=== PATIENT | female | born 1995 | race Caucasian/White ===

== ENCOUNTER 2018-07-18 18:01 | Inpatient (IN) | payer BC ==
--- NOTE | 2018-07-18 18:22 | PDGENHP ---
History and Physical - Chief Complaint bladder pain - History of Present Illness Lola underwent a cystoscopy with hydrodistention today at the [facility]. The operation was without complication. Post operatively the patient was treated with pain meds in the PACU but could not get comfortable enough for discharge. Findings at the time of surgery showed a mild case of interstitial cystitis. She needs to be admitted for pain control. Past Medical history: Anxiety, Interstitial cystitis Exam somnolent due to pain meds, mod discomfort abd- soft non distended, suprapubic tenderness Imp Interstitial cystitis- post op pain from hydrodistention Plan Admit to the hospital for pain control Follow o2 saturation History Information - Allergies/Home Medication List Allergies/Adverse Reactions: amoxicillin Allergy (Verified 07/18/18 18:04) Hives Sulfa (Sulfonamide Antibiotics) Allergy (Verified 07/18/18 18:04) Hives I have personally reviewed and updated: family history, medical history, surgical history Review of Systems Review of Systems: Physical Exam Physical Exam:
[2018-07-19] MEDS: KETOROLAC 30 MG/1 ML SDV IVP PRN ×4 (00:34→23:39)
[2018-07-19] MEDS: D5W 1/2 NS W/ 20 KCl/L 1,000 ML IV SCH ×3 (00:43→20:12)
[2018-07-19] MEDS: OXYCODONE/APAP 5/325 TAB PO PRN ×4 (04:41→23:39)
[2018-07-19] MEDS: CITALOPRAM 20 MG TAB PO SCH (08:50)
--- NOTE | 2018-07-19 10:28 | ASMTCMCOM ---
CM Note CM Note Notes: Met with Pt and Father briefly as Pt was in pain & tearful. RN caring for Pt aware. Pt is a 23yr s/p cystoscope admitted with Abd Pain. Pain Management is ongoing. CM to monitor needs for discharge when Pt is able to answer questions. Plan: TBD Date Signed: 07/19/2018 10:27 AM Electronically Signed By:Camryn Mir
[2018-07-19] MEDS ORDERED: LIDOCAINE 2% JELLY 20 ML (UROJECT) UR ONE ×2 (11:55→12:30)
--- NOTE | 2018-07-19 12:03 | SOAPPROG ---
SOAP Progress Note Assessment/Plan: Assessment: Bladder pain syndrome Still having pain. Voiding. Plan: Ativan, oxybutynin, B&O, lidocaine jelly per urethra, zyrtec, flomax. Will reassess in 2 hrs. 07/19/18 12:00 Subjective: Still having bladder pain. Not ambulated but briefly to bathroom. No blood in urine. Objective: Vital Signs Temp Pulse Resp BP Pulse Ox 36.7 C 84 16 109/58 L 94 07/19/18 11:25 07/19/18 11:25 07/19/18 11:25 07/19/18 11:25 07/19/18 11:25 07/18/18 07/19/18 07/20/18 05:59 05:59 05:59 Intake Total 1080 Balance 1080 Physical Exam - Physical Exam Respiratory: other (normal rate of breathing) Cardiac/Chest: regular rate, rhythm Abdomen: soft, other (tender to light palpation) Skin: normal color, warm/dry Extremities: non-tender Neuro/Psych: oriented x 3 ICD10 Worksheet Patient Problems: Problems Problem Status Onset Chronic bladder pain Acute - ICD10 Problem Qualifiers (1) Chronic bladder pain
[2018-07-19] MEDS: CETIRIZINE 10 MG TAB PO SCH (12:24)
[2018-07-19] MEDS: PHENAZOPYRIDINE HCL 200 MG TAB PO SCH ×2 (12:24→20:11)
[2018-07-19] MEDS: OXYBUTYNIN CHLORIDE 5 MG TAB PO SCH ×3 (12:24→21:52)
[2018-07-19] MEDS: TAMSULOSIN HCL 0.4 MG CAP PO SCH (12:24)
[2018-07-19] MEDS: LORazepam 1 MG TAB PO PRN ×3 (12:25→23:38)
[2018-07-19] MEDS: OPIUM/BELLADONNA ALKALO SUPP PR PRN ×2 (12:25→20:12)
--- NOTE | 2018-07-19 17:26 | SOAPPROG ---
SOAP Progress Note Assessment/Plan: Assessment: Bladder pain Interstitial cystitis Flare Plan: Pain seems to be above what is normally seen with a hydrodistention will obtain CBC and CMP to insure no abnormalities Doubt any type of bladder injury from the procedure- do not believe that a CT scan would be beneficial at this time If pain persists, can re-consider Will give dose of Toradol now 07/19/18 17:23 Subjective: Patient continues to complain of substantial pain in the bladder Has been eating without much difficulty No nausea Urinating and says that the urine is clear without hematuria. Objective: Vital Signs Temp Pulse Resp BP Pulse Ox 36.7 C 69 16 98/59 L 94 07/19/18 15:00 07/19/18 15:00 07/19/18 15:00 07/19/18 15:00 07/19/18 15:00 07/18/18 07/19/18 07/20/18 05:59 05:59 05:59 Intake Total 1080 500 Balance 1080 500 abd soft, tender in suprapubic region, no distention, no cva tenderness, no tympany - Time Spent With Patient Time Spent With Patient: 15 minutes - Pending Discharge Pending Discharge Within 24 Hours: Yes Pending Discharge Date: 07/20/18 Pending Discharge Time: 11:00 ICD10 Worksheet Patient Problems: Problems Problem Status Onset Chronic bladder pain Acute
--- NOTE | 2018-07-20 06:46 | SOAPPROG ---
SOAP Progress Note Assessment/Plan: Assessment: Bladder pain Interstitial cystitis Flare Plan: continues with complaints of pain will recheck WBC this am MOM and colace for constipation will see again this afternoon, hopeful for discharge at that time. 07/19/18 17:23 07/20/18 06:46 Subjective: Patient seems slightly better this am. Still says that she has pain but seems improved overall. Concerned about constipation. Labs yesterday were normal other than a slightly elevated WBC. Will recheck- believe this is related to inflammation as opposed to infection. Objective: Vital Signs Temp Pulse Resp BP Pulse Ox 36.9 C 62 14 99/55 L 93 07/19/18 23:40 07/20/18 04:00 07/20/18 04:00 07/19/18 23:40 07/20/18 04:00 Laboratory Results 07/19/18 18:06 07/19/18 18:06 07/19/18 07/20/18 07/21/18 05:59 05:59 05:59 Intake Total 1080 3643 Balance 1080 3643 Abd- soft, less tender - Pending Discharge Pending Discharge Within 24 Hours: Yes Pending Discharge Date: 07/21/18 Pending Discharge Time: 11:00 ICD10 Worksheet Patient Problems: Problems Problem Status Onset Chronic bladder pain Acute
[2018-07-20] MEDS: MAGNESIUM HYDROXIDE 30 ML UDCUP PO PRN (08:32)
[2018-07-20] MEDS: PHENAZOPYRIDINE HCL 200 MG TAB PO SCH ×3 (08:32→20:09)
[2018-07-20] MEDS ORDERED: CITALOPRAM 20 MG TAB PO SCH (09:00)
[2018-07-20 09:02] LABS: PLATELET COUNT 182 10^3/uL (150-400)
[2018-07-20] MEDS: DOCUSATE SODIUM 100 MG CAP PO SCH ×2 (09:38→20:08)
[2018-07-20] MEDS: CITALOPRAM 20 MG TAB PO SCH (09:38)
[2018-07-20] MEDS: OXYBUTYNIN CHLORIDE 5 MG TAB PO SCH ×3 (09:39→22:00)
[2018-07-20] MEDS: CETIRIZINE 10 MG TAB PO SCH (09:39)
[2018-07-20] MEDS: TAMSULOSIN HCL 0.4 MG CAP PO SCH (09:39)
[2018-07-20] MEDS: KETOROLAC 30 MG/1 ML SDV IVP PRN ×3 (09:50→22:05)
[2018-07-20] MEDS: OXYCODONE/APAP 5/325 TAB PO PRN ×3 (09:51→20:08)
[2018-07-20] MEDS: D5W 1/2 NS W/ 20 KCl/L 1,000 ML IV SCH (09:55)
--- NOTE | 2018-07-20 13:04 | SOAPPROG ---
SOAP Progress Note Assessment/Plan: Assessment: Bladder pain Interstitial cystitis Flare Plan: continues with complaints of pain will d/c iv fluid cont MOM try to get by on Percocet as only pain med so that we can see if she can be discharged in the am 07/19/18 17:23 07/20/18 06:46 07/20/18 13:02 Subjective: still with considerable pain does not believe that she is able to be discharged today Objective: Vital Signs Temp Pulse Resp BP Pulse Ox 36.7 C 77 16 114/87 H 83 L 07/20/18 11:37 07/20/18 11:37 07/20/18 08:00 07/20/18 11:37 07/20/18 11:37 Laboratory Results 07/20/18 08:18 07/19/18 18:06 07/19/18 07/20/18 07/21/18 05:59 05:59 05:59 Intake Total 1080 3643 Balance 1080 3643 normalized wbc soft abdomen ICD10 Worksheet Patient Problems: Problems Problem Status Onset Chronic bladder pain Acute
[2018-07-20] MEDS: OPIUM/BELLADONNA ALKALO SUPP PR PRN (17:48)
[2018-07-20] MEDS: Meth/Meblue/Sod Phos/Psal/Hyos [Uribel Capsule] 1 EACH PO PRN (17:55)
[2018-07-21] MEDS: OXYCODONE/APAP 5/325 TAB PO PRN (04:36)
[2018-07-21] MEDS: KETOROLAC 30 MG/1 ML SDV IVP PRN (04:38)
[2018-07-21] MEDS: Meth/Meblue/Sod Phos/Psal/Hyos [Uribel Capsule] 1 EACH PO PRN (04:49)
[2018-07-21] MEDS: MAGNESIUM HYDROXIDE 30 ML UDCUP PO PRN (05:00)
[2018-07-21] MEDS: LORazepam 1 MG TAB PO PRN ×2 (08:13→23:55)
--- NOTE | 2018-07-21 08:25 | SOAPPROG ---
SOAP Progress Note Assessment/Plan: Assessment: Bladder pain Interstitial cystitis Flare Plan: continues with complaints of pain will switch from percocet to norco to see if this can help order ct of abd/pelvis with contrast to look for other sources of pain 07/19/18 17:23 07/20/18 06:46 07/20/18 13:02 07/21/18 08:24 Subjective: At times feeling a bit better with urination. Having a significant panic attack this am. Still with issues with oxygenation. Describes waves of pain after urination. Objective: Vital Signs Temp Pulse Resp BP Pulse Ox 36.7 C 82 16 107/63 91 L 07/21/18 04:31 07/21/18 04:31 07/21/18 04:31 07/21/18 04:31 07/21/18 04:31 Laboratory Results 07/20/18 08:18 07/19/18 18:06 07/20/18 07/21/18 07/22/18 05:59 05:59 06:59 Intake Total 3643 1050 Output Total 4000 Balance 3643 -4080 - Pending Discharge Pending Discharge Within 24 Hours: Yes Pending Discharge Date: 07/22/18 Pending Discharge Time: 11:00 ICD10 Worksheet Patient Problems: Problems Problem Status Onset Chronic bladder pain Acute
[2018-07-21] MEDS: OXYBUTYNIN CHLORIDE 5 MG TAB PO SCH ×3 (09:20→21:37)
[2018-07-21] MEDS: PHENAZOPYRIDINE HCL 200 MG TAB PO SCH ×3 (09:21→19:49)
[2018-07-21] MEDS: TAMSULOSIN HCL 0.4 MG CAP PO SCH (09:22)
[2018-07-21] MEDS: DOCUSATE SODIUM 100 MG CAP PO SCH ×2 (09:22→19:49)
[2018-07-21] MEDS: CETIRIZINE 10 MG TAB PO SCH (09:23)
[2018-07-21] MEDS: CITALOPRAM 20 MG TAB PO SCH (09:23)
[2018-07-21] MEDS: HYDROCODONE/APAP 5/325 TAB PO PRN ×4 (09:23→23:54)
[2018-07-21] MEDS ORDERED: IOPAMIDOL (ISOVUE-300) 100 ML BTL ONE (11:15)
[2018-07-21] MEDS ORDERED: MAGNESIUM CITRATE 300 ML BOTTLE PO ONE (15:31)
[2018-07-21] MEDS ORDERED: BISACODYL 10 MG SUPP PR PRN (15:32)
--- NOTE | 2018-07-21 16:31 | PDHOSCONS ---
History and Physical - Chief Complaint abdominal pain, abnormal ct - History of Present Illness 23 yo female with long h/o bladder pain and anxiety was admitted by urology after cystoscopy and hydrodistention resulted in severe pain post-procedure. She was requiring oxycodone and IV morphine for pain control. She is also using Pyridium and Oxybutynin. She feels like she is having the worst IC flare of her life. In addition, she has not had a BM for 4-5 days. She notes intermittent problems with constipation. Her pain is mary-umbilical and feels like a sharp stabbing sensation radiating into her bladder. She does not have pelvic pain. No N/V. No fevers/chills. She is tolerating po well. A CT abdomen today revealed food in the stomach (she had just eaten a large breakfast), severe constipation and b/l ovarian cystic changes. Medicine consult is requested given her persistent pain. History Information - Allergies/Home Medication List Allergies/Adverse Reactions: amoxicillin Allergy (Verified 07/18/18 18:04) Hives Sulfa (Sulfonamide Antibiotics) Allergy (Verified 07/18/18 18:04) Hives Home Medications: Citalopram Hydrobromide [Celexa] 40 mg PO DAILY 07/18/18 [Last Taken 07/18/18] LORazepam [Ativan (*)] 1 mg PO DAILY PRN 07/18/18 [Last Taken 07/15/18] Meth/Meblue/Sod Phos/Psal/Hyos [Uribel Capsule] 1 each PO BID PRN 07/18/18 [ Last Taken 07/18/18] I have personally reviewed and updated: family history, medical history, social history, surgical history - Past Medical History Additional medical history: Anxiety. Interstitial cystitis. Constipation - Surgical History Reports: no pertinent surgical hx - Family History Positive for: non-pertinent - Social History Smoking Status: Never smoked Alcohol Use: None Drug Use: None Additional social history: Lives independently. Father at bedside (actually in bed with her). Review of Systems Review of Systems: ROS: 10pt was reviewed & negative except for what was stated in HPI & below Physical Exam Physical Exam: Temp Pulse Resp BP Pulse Ox 36.9 C 80 16 105/69 95 07/21/18 16:05 07/21/18 16:05 07/21/18 16:05 07/21/18 16:05 07/21/18 16:05 O2 (L/minute) 2 Constitutional: no apparent distress Eyes: PERRL Ears, Nose, Mouth, Throat: moist mucous membranes Cardiovascular: regular rate and rhythym Respiratory: no respiratory distress, clear to auscultation Gastrointestinal: other (soft, minimal distention, +TTP without r/r, +voluntary guarding, +bs) Skin: warm Musculoskeletal: full muscle strength Neurologic: AAOx3 Psychiatric: interacting appropriately Lab Data & Imaging Review 07/20/18 08:18 07/19/18 18:06 WBC 7.63 10^3/uL (3.80-9.50) 07/20/18 08:18 RBC 3.39 10^6/uL (4.18-5.33) L 07/20/18 08:18 Hgb 10.0 g/dL (12.6-16.3) L 07/20/18 08:18 Hct 32.2 % (38.0-47.0) L 07/20/18 08:18 MCV 95.0 fL (81.5-99.8) 07/20/18 08:18 MCH 29.5 pg (27.9-34.1) 07/20/18 08:18 MCHC 31.1 g/dL (32.4-36.7) L 07/20/18 08:18 RDW 12.6 % (11.5-15.2) 07/20/18 08:18 Plt Count 182 10^3/uL (150-400) 07/20/18 08:18 MPV 9.8 fL (8.7-11.7) 07/20/18 08:18 Neut % (Auto) 73.7 % (39.3-74.2) 07/20/18 08:18 Lymph % (Auto) 20.3 % (15.0-45.0) 07/20/18 08:18 Bond % (Auto) 5.1 % (4.5-13.0) 07/20/18 08:18 Eos % (Auto) 0.3 % (0.6-7.6) L 07/20/18 08:18 Baso % (Auto) 0.3 % (0.3-1.7) 07/20/18 08:18 Nucleat RBC Rel Count 0.0 % (0.0-0.2) 07/20/18 08:18 Absolute Neuts (auto) 5.63 10^3/uL (1.70-6.50) 07/20/18 08:18 Absolute Lymphs (auto) 1.55 10^3/uL (1.00-3.00) 07/20/18 08:18 Absolute Monos (auto) 0.39 10^3/uL (0.30-0.80) 07/20/18 08:18 Absolute Eos (auto) 0.02 10^3/uL (0.03-0.40) L 07/20/18 08:18 Absolute Basos (auto) 0.02 10^3/uL (0.02-0.10) 07/20/18 08:18 Absolute Nucleated RBC 0.00 10^3/uL (0-0.01) 07/20/18 08:18 Immature Gran % 0.3 % (0.0-1.1) 07/20/18 08:18 Immature Gran # 0.02 10^3/uL (0.00-0.10) 07/20/18 08:18 Sodium 134 mEq/L (135-145) L 07/19/18 18:06 Potassium 4.0 mEq/L (3.5-5.2) 07/19/18 18:06 Chloride 103 mEq/L (97-110) 07/19/18 18:06 Carbon Dioxide 26 mEq/l (22-31) 07/19/18 18:06 Anion Gap 5 mEq/L (6-14) L 07/19/18 18:06 BUN 11 mg/dL (7-23) 07/19/18 18:06 Creatinine 0.6 mg/dL (0.6-1.0) 07/19/18 18:06 Estimated GFR > 60 07/19/18 18:06 Glucose 104 mg/dL (70-100) H 07/19/18 18:06 Calcium 9.1 mg/dL (8.5-10.4) 07/19/18 18:06 Total Bilirubin 0.4 mg/dL (0.1-1.4) 07/19/18 18:06 AST 14 IU/L (14-46) 03/07/19 18:06 ALT 18 IU/L (9-52) 07/19/18 18:06 Alkaline Phosphatase 67 IU/L (38-126) 07/19/18 18:06 Total Protein 6.2 g/dL (6.3-8.2) L 07/19/18 18:06 Albumin 3.7 g/dL (3.5-5.0) 07/19/18 18:06 Assessment & Plan Assessment: Abdominal pain - suspect 2/2 IC flare plus constipation, hastened by opioid induced bowel dysmotility. I think the gastric distention is explained by her large meal prior to CT imaging. I don't think the ovarian cysts are the etiology of her pain, but outpt [employer] consult was recommended to pt. For now, I recommend more aggressive bowel regimen and avoid opiates if able (d/c IV morphine). Will give Mag Citrate now, prn dulcolax suppository, senna, cont scheduled colace. Consider upper GI study if she develops vomiting, but doubt gastric outlet obstruction. Will add PPI for possible reflux. Consider trial of Reglan. IC flare - Cystoscopy with hydrodistention showed mild IC. Further management per urology. Hypoxia - suspect this is multifactorial, decreased respiratory effort with opioids on board and decreased diaphragmatic excursion with abdominal pain. Again, treat constipation and source of abdominal pain. Wean O2 as able. Wean / avoid opiates if possible. Anxiety - prn bzds. Has required IV Ativan for panic attack while here. Full code Dispo - cont inpt. Medicine will continue to follow daily. Thank you for this consultation.
[2018-07-21] MEDS: PANTOPRAZOLE SODIUM 40 MG TAB PO SCH (17:45)
[2018-07-21] MEDS: SENNOSIDES 17.6 MG/10 ML UDL PO SCH (19:50)
[2018-07-21] MEDS ORDERED: SENNOSIDES 17.6 MG/10 ML UDL PO SCH (20:00)
[2018-07-22] MEDS: HYDROCODONE/APAP 5/325 TAB PO PRN ×4 (05:47→23:55)
[2018-07-22] MEDS: SENNOSIDES 17.6 MG/10 ML UDL PO SCH ×2 (08:37→19:56)
[2018-07-22] MEDS: PANTOPRAZOLE SODIUM 40 MG TAB PO SCH (08:38)
[2018-07-22] MEDS: CITALOPRAM 20 MG TAB PO SCH (08:38)
[2018-07-22] MEDS: PHENAZOPYRIDINE HCL 200 MG TAB PO SCH ×3 (08:38→19:55)
[2018-07-22] MEDS: CETIRIZINE 10 MG TAB PO SCH (08:38)
[2018-07-22] MEDS: DOCUSATE SODIUM 100 MG CAP PO SCH ×2 (08:38→19:56)
--- NOTE | 2018-07-22 09:08 | SOAPPROG ---
SOAP Progress Note Assessment/Plan: Assessment: Bladder pain Interstitial cystitis Flare Constipation Plan: constipation seems to be an issue at this point, as well as the interstitial cystitis Will plan to D/C Oxybutinin Will also D/C Flomax as I do not believe that this is needed at this time D/C Levaquin- has had sufficient days of antibiotics D/C Toradol- do not want to cause an renal injury by keeping this med too long Fleet Enema 07/22/18 10:04 Subjective: Feeling somewhat better today Small bowel movement this am Objective: abd less tender Vital Signs Temp Pulse Resp BP Pulse Ox 36.6 C 90 16 99/66 L 92 07/21/18 22:10 07/22/18 05:53 07/22/18 05:53 07/21/18 22:10 07/22/18 05:53 Laboratory Results 07/20/18 08:18 07/19/18 18:06 07/21/18 07/22/18 07/23/18 04:59 05:59 05:59 Intake Total Output Total Balance CT scan done yesterday shows constipation and ovarian cysts. No evidence of any bladder injury - Pending Discharge Pending Discharge Within 24 Hours: Yes Pending Discharge Date: 07/23/18 Pending Discharge Time: 11:00 ICD10 Worksheet Patient Problems: Problems Problem Status Onset Chronic bladder pain Acute
[2018-07-22] MEDS ORDERED: ACETAMINOPHEN 325 MG TAB PO PRN (09:40)
--- NOTE | 2018-07-22 11:29 | ASMTCMCOM ---
CM Note CM Note Notes: Patient remains hospitalized secondary to constipation. No needs identified CM available should needs arise. Plan: Likely to discharge independent when medically cleared for discharge. Date Signed: 07/22/2018 11:28 AM Electronically Signed By:Tete Ramirez RN
[2018-07-22] MEDS: LORazepam 1 MG TAB PO PRN ×2 (11:36→23:54)
[2018-07-22] MEDS: LACTULOSE 200 GM in SODIUM CL IRRIG SOLUTION 700 ML PR SCH ×3 (12:41→22:52)
[2018-07-22] MEDS ORDERED: LACTULOSE 20 GM/30 ML UDCUP PO PRN (13:25)
[2018-07-22] MEDS ORDERED: MAGNESIUM CITRATE 300 ML BOTTLE PO PRN (13:26)
--- NOTE | 2018-07-22 13:27 | HOSPPROG ---
Hospitalist Progress Note Assessment/Plan: Abdominal pain - suspect 2/2 IC flare plus constipation, hastened by opioid induced bowel dysmotility. -continue aggressive bowel regimen, had large loosely formed stool this afternoon IC flare - Cystoscopy with hydrodistention showed mild IC. Further management per urology. Hypoxia - suspect this is multifactorial, decreased respiratory effort with opioids on board and decreased diaphragmatic excursion with abdominal pain. Again, treat constipation and source of abdominal pain. -Wean O2 as able. -Wean / avoid opiates if possible. Anxiety - prn bzds. Has required IV Ativan for panic attack while here. Full code Dispo - cont inpt. Medicine will continue to follow daily. Thank you for this consultation. Subjective: Pt continues to have some abdominal discomfort, but overall feels better. Less pain. Just had a very large soft stool. No fevers/chills. O2 sats down to 82% on room air at times, though seems to be splinting, holding her breath. Objective: Vital Signs Temp Pulse Resp BP Pulse Ox 36.9 C 75 16 91/45 L 92 07/22/18 09:23 07/22/18 09:23 07/22/18 09:23 07/22/18 09:23 07/22/18 09:23 Laboratory Results 07/20/18 08:18 07/19/18 18:06 07/21/18 07/22/18 07/23/18 04:59 05:59 05:59 Intake Total Output Total Balance - Physical Exam Constitutional: no apparent distress Eyes: PERRL Ears, Nose, Mouth, Throat: moist mucous membranes Cardiovascular: regular rate and rhythym Respiratory: no respiratory distress Gastrointestinal: normoactive bowel sounds, other (soft, mild distention, mild diffuse TTP, no r/r/g) Skin: warm Musculoskeletal: full muscle strength Neurologic: AAOx3 Psychiatric: anxious ICD10 Worksheet Patient Problems: Problems Problem Status Onset Chronic bladder pain Acute
[2018-07-22] MEDS: IBUPROFEN 600 MG TAB PO PRN (15:13)
--- NOTE | 2018-07-22 16:00 | PDMN ---
Medical Necessity [facility] or Procedure: 23 yo s/p cystoscopy w/ hydrodistention directly admitted post op w/ pain issues, did not meet discharge criteria. Initially OBS for monitoring and supportive care but pt cont to have ongoing issues w/ constipation, IC flare w/ pain, panic attacks requiring IV ativan, and hypoxia requiring oxygen. Change to IP status 07/22/18@ 1501 per MD order for ongoing monitoring and tx of the above, pt not meeting discharge criteria.
[2018-07-22] MEDS: ENOXAPARIN 40 MG/0.4 ML SYR SC SCH (19:56)
[2018-07-23] MEDS: LACTULOSE 200 GM in SODIUM CL IRRIG SOLUTION 700 ML PR SCH (01:53)
--- NOTE | 2018-07-23 07:03 | SOAPPROG ---
SOAP Progress Note Assessment/Plan: Assessment: Bladder pain Interstitial cystitis Flare Constipation Plan: MAR shows less intake of pain meds and only taking PO pain meds Has had BMs- so constipation seems to be resolving Should be ready for discharge today Will put in orders for discharge 07/22/18 10:04 07/23/18 07:02 Subjective: Patient sleeping comfortably this AM Notes show that she was able to have a large BM Taking less pain meds vitals stable Oxygenation still in low 90s Objective: abd soft Vital Signs Temp Pulse Resp BP Pulse Ox 36.8 C 68 18 110/98 H 90 L 07/22/18 22:47 07/23/18 02:13 07/23/18 04:18 07/22/18 22:47 07/23/18 04:18 Laboratory Results 07/20/18 08:18 07/22/18 15:00 07/22/18 07/23/18 07/24/18 05:59 05:59 05:59 Intake Total Balance - Pending Discharge Pending Discharge Within 24 Hours: Yes Pending Discharge Date: 07/24/18 Pending Discharge Time: 11:00 ICD10 Worksheet Patient Problems: Problems Problem Status Onset Chronic bladder pain Acute
[2018-07-23 08:28] VITALS: BP 90/56
--- NOTE | 2018-07-23 09:13 | ASDISCHSUM ---
Discharge Information Plan Status:Home with No Needs Medically Cleared to Leave: Discharge Date: CM D/C Disposition:Home, Routine, Self-Care ADT D/C Disposition: Projected Discharge Date: Transportation at D/C: Discharge Delay Reason: Follow-Up Date: Discharge Slot: Final Diagnosis: Placement Information Patient Contact Information Contact Name:RICKY Relationship:Father Address:[address] [place] [address] City:[place] Alternate Phone: [facility]/Zip Code:[place] [address] Email: Financial Information Financial Class:BCOP Primary Plan Desc:BC OUT OF STATE PPO Primary Plan Number:[id number] Secondary Plan Desc: Secondary Plan Number: Assessment Information LACE LACE Length of stay for Answers: Less than 1 day current admission Acuity / Level of Answers: Yes Care: Did the patient have an inpatient admission? # of Emergency department Answers: 0 visits in the last 6 months Social determinants Answers: Mental health diagnosis (anxiety, depression, pers onality disorders, etc.) Score: 6 Date Signed: 07/23/2018 09:12 AM Electronically Signed By:Tigist Schroeder RN [facility] CM Progress Note CM Note CM Note Notes: Met with Pt and Father briefly as Pt was in pain & tearful. RN caring for Pt aware. Pt is a 23yr s/p cystoscope admitted with Abd Pain. Pain Management is ongoing. CM to monitor needs for discharge when Pt is able to answer questions. Plan: TBD Date Signed: 07/19/2018 10:27 AM Electronically Signed By:Camryn Mir [facility] CM Progress Note CM Note CM Note Notes: Patient remains hospitalized secondary to constipation. No needs identified CM available should needs arise. Plan: Likely to discharge independent when medically cleared for discharge. Date Signed: 07/22/2018 11:28 AM Electronically Signed By:Tete Ramirez RN Intervention Information
[2018-07-23] MEDS: ENOXAPARIN 40 MG/0.4 ML SYR SC SCH (10:03)
[2018-07-23] MEDS: PANTOPRAZOLE SODIUM 40 MG TAB PO SCH (10:03)
[2018-07-23] MEDS: CITALOPRAM 20 MG TAB PO SCH (10:03)
[2018-07-23] MEDS: PHENAZOPYRIDINE HCL 200 MG TAB PO SCH (10:03)
[2018-07-23] MEDS: CETIRIZINE 10 MG TAB PO SCH (10:03)
[2018-07-23] MEDS: SENNOSIDES 17.6 MG/10 ML UDL PO SCH (10:04)
[2018-07-23] MEDS: DOCUSATE SODIUM 100 MG CAP PO SCH (10:04)
[2018-07-23] MEDS: IBUPROFEN 600 MG TAB PO PRN (11:25)
--- NOTE | 2018-07-23 13:03 | GDS ---
[f rep st] DISCHARGE SUMMARY ADMITTING DIAGNOSIS: Bladder pain, interstitial cystitis. DISCHARGE DIAGNOSIS: Bladder pain, interstitial cystitis, with constipation. HOSPITAL COURSE: The patient was admitted to the hospital, having undergone a cystoscopy with hydrod istention on July 18. This was scheduled to be an outpatient procedure, but because of the patient 's significant pain, requirement for narcotics, inability to maintain appropriate oxygenation, she re quired admission to the hospital. As significant pain medication was needed over the next several da ys, laboratory studies initially showed a white count of 14,000, but then when recheck this went down to 7000. The patient was tried on multiple medications in order to try to relieve her discomfort. A CT scan was done on July 21 that showed evidence of significant constipation and small ovarian cy st. But these were thought unlikely to be the source of her discomfort. She was started on a signif icant bowel regimen in order to help with bowel movements. Her pain medication requirement went down . She was feeling somewhat better and the decision was made on July 23 to discharge the patient t o home. She will follow up with me later in the week to continue the treatment for interstitial cyst itis. /[id number]/MODL
== END 2018-07-23 11:42 | disposition home or self-care (01) | DRG 948 ==
LOC: F1N 19:04 → OBSVTOIN 07-22 15:01
PROVIDERS: ADMIT Urology; ATTEND Urology
DX: G89.18 Other acute postprocedural pain (principal); N30.10 Interstitial cystitis (chronic) without hematuria; K59.00 Constipation, unspecified; F41.0 Panic disorder [episodic paroxysmal anxiety]
CPT/HCPCS: G0378; G0379; J1650; J1885; J2270; Q9967

== ENCOUNTER 2018-10-15 03:31 | Emergency (ER) | payer BC | END 2018-10-15 09:47 ==